=== PATIENT | female | born 1960 | race Caucasian/White ===

== ENCOUNTER 2017-12-07 10:51 | Emergency (ER) | payer BC ==
[2017-12-07 11:20] VITALS: BP 125/71
--- NOTE | 2017-12-07 11:57 | UC ---
Back Pain HPI - HPI Summary HPI Summary: 56 female presents to with complaints of low back pain that began 2-3 days ago, worse on right than left but is bilateral. Denies any known trauma or injury. Has also had decreased appetite and has had decreased urination. Denies burning or blood with urination, fever/chills, abdominal pain. No other symptoms. Normal bowel movements. Has not tried any treatment at home. - History of Current Complaint Chief Complaint: UCBackPain Stated Complaint: LOWER BACK PAIN Time Seen by Provider: 12/07/17 11:34 Hx Obtained From: Patient Onset/Duration: Sudden Onset, Lasting Days, Still Present Timing: Constant Severity Initially: Mild Severity Currently: Mild Pain Intensity: 5 Pain Scale Used: 0-10 Numeric Back Pain: Is Discrete @ - right mid/low back Character: Dull, Aching Aggravating Factor(s): Movement Alleviating Factor(s): Nothing Associated Signs And Symptoms: Positive: Flank Pain. Negative: Swelling, Redness, Bruising, Weakness, Numbness, Tingling, Abdominal Pain, Bladder Incontinence, Bowel Incontinence, Pain with Weight Bearing - Risk Factors AAA Risk Factors: Negative TAD Risk Factors: Negative Cauda Equina Risk Factors: Negative Epidural Abscess Risk Factors: Negative - Allergies/Home Medications Allergies/Adverse Reactions: Allergies Allergy/AdvReac Type Severity Reaction Status Date / Time No Known Allergies Allergy Verified 12/07/17 11:20 Home Medications: Home Medications Aspirin 81 mg PO 12/07/17 [History] PMH/Surg Hx/FS Hx/Imm Hx Cardiovascular History: Cardiac Disease Psychological History: Anxiety, Depression - Surgical History Surgical History: Yes Surgery Procedure, Year, and Place: gallbladder. left leg fx tibia (has plate/ screws) - Family History Known Family History: Positive: None - Social History Alcohol Use: None Substance Use Type: None Smoking Status (MU): Never Smoked Tobacco Review of Systems Constitutional: Negative Respiratory: Negative Cardiovascular: Negative Musculoskeletal: Arthralgia - low/mid back, Myalgia Neurological: Negative - decreased frequency All Other Systems Reviewed And Are Negative: Yes Physical Exam Triage Information Reviewed: Yes Appearance: Well-Appearing, No Pain Distress, Well-Nourished Vital Signs: Initial Vital Signs Temp 98.2 F 12/07/17 11:12 Pulse 80 12/07/17 11:12 Resp 18 02/27/18 11:12 BP 125/71 12/07/17 11:12 Pulse Ox 99 12/07/17 11:12 Vital Signs Reviewed: Yes Eyes: Positive: Conjunctiva Clear ENT: Positive: Hearing grossly normal, Pharynx normal Neck: Positive: Supple Respiratory: Positive: Chest non-tender, Lungs clear, Normal breath sounds, No respiratory distress, No accessory muscle use. Negative: Stridor, Wheezing Cardiovascular: Positive: RRR, No Murmur, Pulses Normal Abdomen Description: Positive: Nontender, Soft, CVA Tenderness (R), CVA Tenderness (L). Negative: No Organomegaly, Distended, Guarding, McBurney's Point Tenderness, Peritoneal Signs Bowel Sounds: Positive: Present Musculoskeletal Exam: Normal Musculoskeletal: Positive: Strength Intact, ROM Intact, No Edema Neurological Exam: Normal Neurological: Positive: Alert Skin Exam: Normal Back Pain Course/Dx - Course Course Of Treatment: urinalysis obtained and showed +1 leuk esterase, trace ketone and bilirubin. no signs of infection, no blood suggesting kidney stone. possible MSK versus kidney related. Educated on imaging and blood work may be required is symptoms persist worsen or do not improve. educated on possible etiology. Due to know injury/trauma no imaging appeared necessary at this time. Also normal UA and vital signs. AWare of worsening signs and symptoms to watch out for and to go straight to ER if occur. PAtient agrees and understands. Follow up with PCP. - Differential Dx/Diagnosis Differential Diagnosis/HQI/PQRI: Renal Colic, Strain, Sprain, Other - pyelonephritis, UTI, renal calculi Provider Diagnoses: low back pain Discharge - Discharge Plan Condition: Stable Disposition: HOME Patient Education Materials: Acute Low Back Pain (ED) Forms: *Work Release Referrals: Harris Castañeda PA [Primary Care Provider] - Additional Instructions: Try taking ibuprofen to help with pain in case this is MSK related, as discussed. Hold off on baby aspirin on days you take ibuprofen. Apply heating pad and rest. IF symptoms worsen, do not improve or not symptoms develop (fever, abdominal pain, urinary symptoms,vomiting, increased pain, feeling ill) please go straight to ER as we discussed as you may need further testing. Follow up with PCP to ensure improvement.
== END 2017-12-07 12:06 | disposition home or self-care (01) ==
LOC: UCCORT 10:51
DX: M54.5 Low back pain (principal); R39.198 Other difficulties with micturition; I51.9 Heart disease, unspecified; F41.9 Anxiety disorder, unspecified; F32.9 Major depressive disorder, single episode, unspecified
CPT/HCPCS: 81003; 87086; 99211; G0463